=== PATIENT | female | born 1975 | race Caucasian/White ===

== ENCOUNTER 2022-02-28 20:48 | Emergency (ER) | payer MEDICAID ==
[2022-02-28 20:56] VITALS: BP 132/79; PULSE 67; RESP 18; TEMP 99.1
--- NOTE | 2022-02-28 21:19 | XR ---
EXAMINATION TYPE: XR finger RT DATE OF EXAM: 02/28/2022 9:09 PM INDICATION: Patient age:Female; 46 years old; Reason for study: Pain. COMPARISON: None TECHNIQUE: 3 views of the right thumb were obtained. FINDINGS: Normal alignment of the visualized joints. No acute osseous pathology is identified. No e vidence of soft tissue swelling. IMPRESSION: No acute osseous pathology.
--- NOTE | 2022-02-28 21:21 | XR ---
EXAMINATION TYPE: XR ankle complete LT DATE OF EXAM: 02/28/2022 9:08 PM INDICATION: Patient age:Female; 46 years old; Reason for study: Pain; PHH. COMPARISON: None TECHNIQUE: The left ankle is imaged in AP lateral and oblique projections. FINDINGS: There is no evidence of acute osseous pathology. The joint spaces are well-preserved without evidenc e of subluxation or dislocation. Kager's fat pad is intact. Mild soft tissue swelling around the ankl e. No radiopaque foreign bodies are identified. Sensory ossicle is present. IMPRESSION: 1. No evidence of acute fracture. 2. Subcutaneous swelling around the ankle likely secondary to underlying soft tissue injury.
[2022-03-01] MEDS ORDERED: IBUPROFEN 600 MG TAB PO STA (00:30)
--- NOTE | 2022-03-01 00:43 | ED ---
General Adult HPI - General Chief complaint: Extremity Injury, Lower Stated complaint: L ankle pain Time Seen by Provider: 02/28/22 22:59 Source: patient, RN notes reviewed Mode of arrival: ambulatory Limitations: no limitations - History of Present Illness Initial comments: 46-year-old female presents to the emergency department for evaluation of left ankle pain and right thumb discomfort. Patient states she tripped on uneven ground causing her to twist her ankle and fall on outstretched arms. Reports injuries occurred this afternoon. States she had quite a bit of pain with ambulation and also has mild discomfort in the right thumb with palpation and movement. Did not take anything to treat symptoms prior to arrival. No additional injuries. Denies head, neck, or back pain; no head injury or loss of consciousness. - Related Data Previous Rx's Medication Instructions Recorded Ibuprofen [Motrin] 600 mg PO Q8HR PRN #20 tab 03/01/22 Allergies Allergy/AdvReac Type Severity Reaction Status Date / Time shellfish derived [Shellfish] Allergy Anaphylaxis Verified 02/28/22 20:56 Review of Systems ROS Statement: Those systems with pertinent positive or pertinent negative responses have been documented in the HPI. ROS Other: All systems not noted in ROS Statement are negative. Past Medical History Past Medical History: No Reported History History of Any Multi-Drug Resistant Organisms: None Reported Past Surgical History: No Surgical Hx Reported Past Psychological History: No Psychological Hx Reported Smoking Status: Never smoker Past Alcohol Use History: None Reported Past Drug Use History: None Reported General Exam Limitations: physical limitation (Mobility and weightbearing activity limited by left ankle pain.) General appearance: alert, in no apparent distress, other (Well-developed, well- nourished female in no acute distress. Initial temperature 99.1, pulse 67, respirations 18, blood pressure 132/79, pulse ox 99% on room air.) Head exam: Present: atraumatic, normocephalic, normal inspection Respiratory exam: Present: normal lung sounds bilaterally. Absent: respiratory distress, wheezes, rales, rhonchi, stridor Cardiovascular Exam: Present: regular rate, normal rhythm, normal heart sounds. Absent: systolic murmur, diastolic murmur, rubs, gallop, clicks GI/Abdominal exam: Present: soft, normal bowel sounds. Absent: distended, tenderness, guarding, rebound, rigid Course Vital Signs 02/28/22 20:54 Temperature 99.1 F Pulse Rate 67 Respiratory 18 Rate Blood Pressure 132/79 O2 Sat by Pulse 99 Oximetry Procedures - Orthopedic Splinting/Casting Injury #1 Side: left Lower Extremity Injury Location: ankle Lower Extremity Immobilizer: AirCast, Junior wrap Additional Comments: Patient tolerated well. Educated on proper splint care. No neurovascular compromise; distal sensation intact after splinting. Medical Decision Making - Medical Decision Making 46-year-old female presents to the emergency department for evaluation of injury sustained in a fall this afternoon. Upon exam, patient is resting comfortably in a wheelchair with her left lower extremity elevated. She complains of left ankle pain with moderate amount of swelling around the lateral malleolus. Distal sensation is intact. Skin warm, pink, and dry. Patient also complains of pain to the right thumb. There is no abrasion, laceration, or deformity noted. Range of motion is mildly decreased due to pain. There is no snuffbox tenderness or wrist injury. X-rays of the left ankle and right thumb were obtained and were negative. Junior wrap and stirrup splint were applied to the left ankle. Patient is given today and tomorrow off of work. Motrin prescribed for discomfort. She is instructed to follow up with her PCP for a recheck on Thursday. Return parameters discussed in detail. Patient verbalizes understanding and agrees with this plan. Attending: Ericka. - Radiology Data Radiology results: report reviewed, image reviewed X-ray of the left ankle was obtained. Report was reviewed in its entirety. Impression per Dr. Iniguez is #1. No evidence of acute fracture. #2. Subcutaneous swelling around the ankle likely secondary to underlying soft tissue injury. X-ray of the right thumb was obtained. Report was reviewed in its entirety. Impression per Dr. Iniguez is no acute osseous pathology. Disposition Clinical Impression: Left ankle sprain, Thumb pain Disposition: HOME SELF-CARE Condition: Stable Instructions (If sedation given, give patient instructions): Ankle Sprain (ED) Additional Instructions: Junior wrap in place for compression. Stirrup splint for ankle support. Apply ice for no more than 20 minutes per hour. Rest with ankle elevated. May take Motrin if needed for pain. Work note was provided for today and tomorrow. Follow-up with your PCP for a recheck on Thursday. Return to the emergency department with any new, worsening, or concerning symptoms. Prescriptions: Ibuprofen [Motrin] 600 mg PO Q8HR PRN #20 tab PRN Reason: Pain Is patient prescribed a controlled substance at d/c from ED?: No Referrals: None,Stated [Primary Care Provider] - 1-2 days Time of Disposition: 00:43
== END 2022-03-01 00:49 | disposition home or self-care (01) ==
LOC: EC 20:48
DX: Z91.013 Allergy to seafood (principal); S93.402A Sprain of unspecified ligament of left ankle, initial encounter; M79.645 Pain in left finger(s)
CPT/HCPCS: 73140; 73610; 29515; 99283; L4350

== ENCOUNTER → 2022-05-26 | Outpatient (CLI) | payer MEDICAID ==
--- NOTE | 2022-05-27 08:36 | MM ---
Reason for Exam: Screening (asymptomatic). Baseline mammogram. Patient History: Menarche at age 13. First Full-Term at age 31. Late child-bearing (after 30). Patient has history of breast feeding. Used Progesterone. Risk Values: Mary 5 year model risk: 1.1%. NCI Lifetime model risk: 11.6%. Prior Study Comparison: Patient's first Mammogram. Tissue Density: The breast tissue is almost entirely fat. Findings: Analyzed By CAD. There is no suspicious group of microcalcifications or new suspicious mass in either breast. Overall Assessment: Negative, BI-RAD 1 Management: Screening Mammogram of both breasts in 1 year. A clinical breast exam by your physician is recommended on an annual basis and results should be correlated with mammographic findings. Electronically signed and approved by: Kemar Iniguez DO
== END | disposition home or self-care (01) ==
LOC: RADMAMWWP 10:54
PROVIDERS: ATTEND Family Medicine
DX: Z12.31 Encounter for screening mammogram for malignant neoplasm of breast (principal)
CPT/HCPCS: 77067

== ENCOUNTER 2022-06-05 08:56 | Day surgery (SDC) | payer MEDICAID ==
[2022-06-04 08:51] VITALS: BMI 32.5
[~2022-06-05 08:56] MED LIST: LACTATED RINGERS 1,000 ML IV SCH; LIDOCAINE 1% (10MG/ML) FOR IV START INTRADERMA PRN; ONDANSETRON 4 MG/2 ML VIAL IVP PRN
[2022-06-05 09:32] VITALS: RESP 16; TEMP 97.1
[2022-06-05] MEDS ORDERED: PROPOFOL 10 MG/ML 20 ML VIAL IV ONE (10:09)
[2022-06-05] MEDS ORDERED: LIDOCAINE 2% INJ 20 MG/ML (2 ML VIAL) ONE (10:09)
--- NOTE | 2022-06-05 10:10 | P.GSHP ---
History of Present Illness H&P Date: 06/05/22 Chief Complaint: Screening colonoscopy Is a 46-year-old female presents today for screening colonoscopy. Patient denies a significant GI complaints. Past Medical History Past Medical History: No Reported History History of Any Multi-Drug Resistant Organisms: None Reported Past Surgical History: No Surgical Hx Reported Past Anesthesia/Blood Transfusion Reactions: No Reported Reaction Smoking Status: Never smoker - Past Family History Mother Family Medical History: No Reported History Medications and Allergies Home Medications Medication Instructions Recorded Confirmed Type No Known Home Medications 06/04/22 06/05/22 History Allergies Allergy/AdvReac Type Severity Reaction Status Date / Time shellfish derived [Shellfish] Allergy Anaphylaxis Verified 06/05/22 09:33 Surgical - Exam Vital Signs Temp Pulse Resp BP Pulse Ox 97.1 F L 54 L 16 125/64 100 06/05/22 09:31 06/05/22 09:31 06/05/22 09:31 06/05/22 09:31 06/05/22 09:31 - General well developed, well nourished, no distress - Eyes PERRL - ENT normal pinna - Neck no masses - Respiratory normal expansion - Cardiovascular Rhythm: regular - Abdomen Abdomen: soft, non tender Assessment and Plan Assessment: We'll perform screening colonoscopy
--- NOTE | 2022-06-05 10:26 | P.OP ---
Date of Procedure: 06/05/22 Preoperative Diagnosis: Screening colonoscopy Postoperative Diagnosis: Normal colonoscopy Procedure(s) Performed: Colonoscopy Anesthesia: MAC Surgeon: Varun Navarro Pathology: none sent Condition: stable Disposition: PACU Description of Procedure: Patient's placed on the endoscopy table lateral position. She received IV sedation. Digital rectal exam was performed which revealed no ebonized. The flexible colonoscope was then placed patient anus and passed rotator entire colon. The ileocecal valve was visualized. The cecum, ascending and transverse colon appeared normal. The descending and sigmoid colon appeared normal. The scope was brought back the rectum and this appeared normal. Scope withdrawn for patient.
[2022-06-05 10:54] VITALS: BP 128/63; PULSE 52
== END 2022-06-05 11:21 | disposition home or self-care (01) ==
LOC: ORWHC2ENDO 08:56
PROVIDERS: ATTEND Surgery
DX: Z12.11 Encounter for screening for malignant neoplasm of colon (principal); J45.909 Unspecified asthma, uncomplicated; Z91.013 Allergy to seafood
CPT/HCPCS: 81025; 45378; J2704; J2001

== ENCOUNTER 2022-08-05 10:35 | Emergency (ER) | payer MEDICAID ==
[2022-08-05 10:40] VITALS: BP 132/72; PULSE 75; RESP 18; TEMP 98.4
--- NOTE | 2022-08-05 11:11 | ED ---
General Adult HPI - General Chief complaint: Chest Pain Stated complaint: palpitations Time Seen by Provider: 08/05/22 10:48 Source: patient, RN notes reviewed, old records reviewed Mode of arrival: ambulatory Limitations: no limitations - History of Present Illness Initial comments: 46-year-old female presents for evaluation palpitations. Symptoms began prior to arrival and has since resolved. This was associated with some chest tightness. No chest pain. No diaphoresis. No vomiting or diarrhea. No fever. Symptoms resolved at the time my evaluation. Patient felt as though her heart was racing. She states she is being worked up for thyroid issues by her primary care physician. - Related Data Home Medications Medication Instructions Recorded Confirmed No Known Home Medications 06/04/22 06/05/22 Allergies Allergy/AdvReac Type Severity Reaction Status Date / Time shellfish derived [Shellfish] Allergy Anaphylaxis Verified 08/05/22 10:40 Review of Systems ROS Statement: Those systems with pertinent positive or pertinent negative responses have been documented in the HPI. ROS Other: All systems not noted in ROS Statement are negative. Past Medical History Past Medical History: No Reported History History of Any Multi-Drug Resistant Organisms: None Reported Past Surgical History: No Surgical Hx Reported Past Psychological History: No Psychological Hx Reported Smoking Status: Never smoker Past Alcohol Use History: None Reported Past Drug Use History: None Reported General Exam Limitations: no limitations General appearance: alert, in no apparent distress Head exam: Present: atraumatic, normocephalic Eye exam: Present: normal appearance, PERRL ENT exam: Present: normal exam Neck exam: Present: normal inspection. Absent: tenderness, meningismus Respiratory exam: Present: normal lung sounds bilaterally. Absent: respiratory distress, wheezes Cardiovascular Exam: Present: regular rate, normal rhythm GI/Abdominal exam: Present: soft. Absent: distended, tenderness, guarding, rebound Extremities exam: Present: normal inspection, normal capillary refill. Absent: pedal edema, calf tenderness Neurological exam: Present: alert, oriented X3, CN II-XII intact. Absent: motor sensory deficit Psychiatric exam: Present: normal affect, normal mood Skin exam: Present: warm, dry, intact. Absent: cyanosis, diaphoretic Course Vital Signs 08/05/22 10:37 Temperature 98.4 F Pulse Rate 75 Respiratory 18 Rate Blood Pressure 132/72 O2 Sat by Pulse 98 Oximetry EKG Findings - EKG Comments: EKG Findings:: EKG: Sinus rhythm rate of 70, MN interval 152, QRS duration [address] segment elevation, Q waves and T-wave inversion in lead 3. Medical Decision Making - Medical Decision Making 46-year-old female presented for evaluation of palpitation. Patient found to be in sinus rhythm. Patient is not currently having symptoms at the time my evaluation. She does have normal CBC, normal CMP, mild hypomagnesemia 1.5, negative troponin. Chest x-ray clear. Patient reevaluated, resting comfortably. She is instructed that she should follow with her primary care physician, may require heart monitor. Return with worsening or changing symptoms. - Lab Data Result diagrams: 08/05/22 11:08/05/22 11: Lab Results 08/05/22 08/05/22 08/05/22 Range/Units 11: 11: 11: WBC 7.8 (3.8-10.6) k/uL RBC 4.45 (3.80-5.40) m/uL Hgb 13.3 (11.4-16.0) gm/dL Hct 38.6 (34.0-46.0) % MCV 86.7 (80.0-100.0) fL MCH 29.9 (25.0-35.0) pg MCHC 34.5 (31.0-37.0) g/dL RDW 12.2 (11.5-15.5) % Plt Count 249 (150-450) k/uL MPV 9.3 Neutrophils % 58 % Lymphocytes % 28 % Monocytes % 9 % Eosinophils % 3 % Basophils % 0 % Neutrophils # 4.5 (1.3-7.7) k/uL Lymphocytes # 2.2 (1.0-4.8) k/uL Monocytes # 0.7 (0-1.0) k/uL Eosinophils # 0.2 (0-0.7) k/uL Basophils # 0.0 (0-0.2) k/uL PT 10.1 (9.0-12.0) sec INR 0.9 (<1.2) APTT 22.0 (22.0-30.0) sec Sodium 138 (137-145) mmol/L Potassium 3.9 (3.5-5.1) mmol/L Chloride 107 (98-107) mmol/L Carbon Dioxide 21 L (22-30) mmol/L Anion Gap 10 mmol/L BUN 12 (7-17) mg/dL Creatinine 0.46 L (0.52-1.04) mg/dL Est GFR (CKD-EPI)AfAm >90 (>60 ml/min/1.73 sqM) Est GFR (CKD-EPI)NonAf >90 (>60 ml/min/1.73 sqM) Glucose 96 (74-99) mg/dL Calcium 9.0 (8.4-10.2) mg/dL Magnesium 1.5 L (1.6-2.3) mg/dL Total Bilirubin 0.6 (0.2-1.3) mg/dL AST 22 (14-36) U/L ALT 32 (4-34) U/L Alkaline Phosphatase 47 (38-126) U/L Troponin I (0.000-0.034) ng/mL Total Protein 6.5 (6.3-8.2) g/dL Albumin 4.0 (3.5-5.0) g/dL Lipase 116 (23-300) U/L 08/05/22 Range/Units 11:01 WBC (3.8-10.6) k/uL RBC (3.80-5.40) m/uL Hgb (11.4-16.0) gm/dL Hct (34.0-46.0) % MCV (80.0-100.0) fL MCH (25.0-35.0) pg MCHC (31.0-37.0) g/dL RDW (11.5-15.5) % Plt Count (150-450) k/uL MPV Neutrophils % % Lymphocytes % % Monocytes % % Eosinophils % % Basophils % % Neutrophils # (1.3-7.7) k/uL Lymphocytes # (1.0-4.8) k/uL Monocytes # (0-1.0) k/uL Eosinophils # (0-0.7) k/uL Basophils # (0-0.2) k/uL PT (9.0-12.0) sec INR (<1.2) APTT (22.0-30.0) sec Sodium (137-145) mmol/L Potassium (3.5-5.1) mmol/L Chloride (98-107) mmol/L Carbon Dioxide (22-30) mmol/L Anion Gap mmol/L BUN (7-17) mg/dL Creatinine (0.52-1.04) mg/dL Est GFR (CKD-EPI)AfAm (>60 ml/min/1.73 sqM) Est GFR (CKD-EPI)NonAf (>60 ml/min/1.73 sqM) Glucose (74-99) mg/dL Calcium (8.4-10.2) mg/dL Magnesium (1.6-2.3) mg/dL Total Bilirubin (0.2-1.3) mg/dL AST (14-36) U/L ALT (4-34) U/L Alkaline Phosphatase (38-126) U/L Troponin I <0.012 (0.000-0.034) ng/mL Total Protein (6.3-8.2) g/dL Albumin (3.5-5.0) g/dL Lipase (23-300) U/L Disposition Clinical Impression: Palpitations Disposition: HOME SELF-CARE Condition: Good Instructions (If sedation given, give patient instructions): Heart Palpitations (ED) Is patient prescribed a controlled substance at d/c from ED?: No Referrals: Yasmani Abraham MD [Primary Care Provider] - 1-2 days Time of Disposition: 12:22
[2022-08-05 11:23] LABS: Basophils % (A) 0 %; Eosinophils # (A) 0.2 k/uL (0-0.7); Eosinophils % (A) 3 %; HCT 38.6 % (34.0-46.0); HGB 13.3 gm/dL (11.4-16.0); Lymphocytes # (A) 2.2 k/uL (1.0-4.8); Lymphocytes % (A) 28 %; MCH 29.9 pg (25.0-35.0); MCHC 34.5 g/dL (31.0-37.0); MCV 86.7 fL (80.0-100.0); Mean Platelet Volume 9.3; Monocytes # (A) 0.7 k/uL (0-1.0); Monocytes % (A) 9 %; Neutrophils # (A) 4.5 k/uL (1.3-7.7); Neutrophils % (A) 58 %; Platelet Count 249 k/uL (150-450); RBC 4.45 m/uL (3.80-5.40); RDW 12.2 % (11.5-15.5); WBC 7.8 k/uL (3.8-10.6)
[2022-08-05 11:34] LABS: ALT 32 U/L (4-34); AST 22 U/L (14-36); African American GFR (CKD) >90 (>60 ml/min/1.73 sqM); Alkaline Phosphatase 47 U/L (38-126); Anion Gap 10 mmol/L; Blood Urea Nitrogen 12 mg/dL (7-17); Carbon Dioxide 21 mmol/L (22-30); Chloride 107 mmol/L (98-107); Glucose 96 mg/dL (74-99); Lipase 116 U/L (23-300); Magnesium 1.5 mg/dL (1.6-2.3); Non-African American GFR(CKD) >90 (>60 ml/min/1.73 sqM); Potassium 3.9 mmol/L (3.5-5.1); Sodium 138 mmol/L (137-145); Total Bilirubin 0.6 mg/dL (0.2-1.3); Total Protein 6.5 g/dL (6.3-8.2)
--- NOTE | 2022-08-05 11:35 | XR ---
EXAMINATION TYPE: XR chest 2V DATE OF EXAM: 08/05/2022 COMPARISON: NONE HISTORY: Chest pain TECHNIQUE: Frontal and lateral views of the chest are obtained. FINDINGS: There is no focal air space opacity, pleural effusion, or pneumothorax seen. The cardiac silhouette size is within normal limits. Right hemidiaphragm mildly elevated. There are overlying balaji ds. The osseous structures are intact. IMPRESSION: No acute cardiopulmonary process.
[2022-08-05 11:46] LABS: INR 0.9 (<1.2); Prothrombin Time 10.1 sec (9.0-12.0)
== END 2022-08-05 12:47 | disposition home or self-care (01) ==
LOC: EC 10:35
DX: R00.2 Palpitations (principal); Z91.013 Allergy to seafood
CPT/HCPCS: 36415; 71046; 80053; 83690; 83735; 84484; 85025; 85610; 85730; 93005; 99285

== ENCOUNTER → 2022-08-22 | Outpatient (CLI) | payer OTHER ==
--- NOTE | 2022-08-22 12:30 | XR ---
EXAMINATION TYPE: XR forearm LT, XR wrist complete LT DATE OF EXAM: 08/22/2022 12:23 PM INDICATION: Patient age:Female; 46 years old; Reason for study: S46.912A, S63.502A, M79.632; pain. COMPARISON: None TECHNIQUE: The left forearm was examined in frontal and lateral views. The left wrist was examined in frontal lateral oblique and navicular views. FINDINGS: No acute osseous pathology, soft tissue swelling or joint dislocations are seen. IMPRESSION: No evidence of acute fracture.
--- NOTE | 2022-08-22 13:14 | XR ---
EXAMINATION TYPE: XR shoulder complete LT DATE OF EXAM: 08/22/2022 CLINICAL HISTORY: pain COMPARISON: NONE TECHNIQUE: Three views of the left shoulder are obtained. FINDINGS: There is no acute fracture/dislocation evident. The acromioclavicular and glenohumeral ross int spaces appear within normal limits. The visualized ribs are intact and unremarkable. IMPRESSION: 1. There is no acute fracture or dislocation. ICD 10 NO FRACTURE, INITIAL EVALUATION
== END | disposition home or self-care (01) ==
LOC: RADXRMAIN 12:08
PROVIDERS: ATTEND Emergency Medicine
DX: M79.632 Pain in left forearm (principal)

== ENCOUNTER → 2022-09-01 | Outpatient (CLI) | payer MEDICAID ==
--- NOTE | 2022-09-09 10:21 | HM ---
CARDIAC ELECTROPHYSIOLOGY REPORT STUDY PERFORMED: FINDINGS: The patient was monitored for 24 hours. The baseline rhythm appeared to be sinus mechanism with a minimum heart rate of 50, max 133, and average of 76 beats per minute. Ventricular ectopic events presented in less than 1% of the total beats count and presented mainly as PVCs. Supraventricular ectopic events presented in less than 1% of total beats count. The patient did have multiple episodes of narrow complex tachycardia consistent with SVT. CONCLUSION: 1. Sinus rhythm as a baseline mechanism. 2. The patient did have multiple episodes of premature ventricular contraction. 3. The patient did have multiple short episodes of atrial tachycardia/SVT. 4. No diary was attached to the study. MMODL / IJN: [id number] / TERESO
== END | disposition home or self-care (01) ==
LOC: RADECHMAIN 08:10
PROVIDERS: ATTEND Family Medicine
DX: I49.3 Ventricular premature depolarization (principal)
CPT/HCPCS: 93225; 93226

== ENCOUNTER → 2022-09-22 | Outpatient (CLI) | payer MEDICAID, OTHER ==
--- NOTE | 2022-09-22 15:08 | XR ---
EXAMINATION TYPE: XR chest 2V DATE OF EXAM: 09/22/2022 COMPARISON: Chest x-ray August 05, 2022 HISTORY: Presurgical study. TECHNIQUE: Frontal and lateral views of the chest are obtained. FINDINGS: There is no suspicious focal air space opacity, pleural effusion, or pneumothorax seen. T he cardiac silhouette size is stable and within normal limits. The osseous structures are intact. IMPRESSION: No acute process. No significant change from prior.
== END | disposition home or self-care (01) ==
LOC: RADXRMAIN 14:44
PROVIDERS: ATTEND Family Medicine
DX: Z01.818 Encounter for other preprocedural examination (principal)
CPT/HCPCS: 71046

== ENCOUNTER → 2022-10-10 | Outpatient (CLI) | payer MEDICAID | END | disposition home or self-care (01) | LOC: LABPAT 13:38 | PROVIDERS: ATTEND Obstetrics & Gynecology | DX: Z01.812 Encounter for preprocedural laboratory examination (principal); N81.4 Uterovaginal prolapse, unspecified ==

== ENCOUNTER → 2022-10-10 | Outpatient (CLI) | payer MEDICAID | END | disposition home or self-care (01) | LOC: LABWHC1 13:39 | PROVIDERS: ATTEND Internal Medicine Endocrinology, Diabetes & Metabolism | DX: E05.00 Thyrotoxicosis with diffuse goiter without thyrotoxic crisis or storm (principal) | CPT/HCPCS: 36415; 84439; 84443; 84445; 84480 ==

== ENCOUNTER → 2022-10-27 | Outpatient (CLI) | payer MEDICAID | END | disposition home or self-care (01) | LOC: LABWHC1 16:10 | PROVIDERS: ATTEND Internal Medicine Endocrinology, Diabetes & Metabolism | DX: E05.00 Thyrotoxicosis with diffuse goiter without thyrotoxic crisis or storm (principal) | CPT/HCPCS: 36415; 84439; 84443; 84480 ==

== ENCOUNTER → 2022-11-24 | Outpatient (CLI) | payer MEDICAID | END | disposition home or self-care (01) | LOC: LABWHC1 16:01 | PROVIDERS: ATTEND Internal Medicine Endocrinology, Diabetes & Metabolism | DX: E05.00 Thyrotoxicosis with diffuse goiter without thyrotoxic crisis or storm (principal) | CPT/HCPCS: 36415; 84439; 84443; 84480 ==

== ENCOUNTER → 2023-04-02 | Outpatient (CLI) | payer OTHER ==
[2023-04-03 03:00] LABS: T4, Free (Free Thyroxine) 1.85 ng/dL (0.80-1.80)
== END | disposition home or self-care (01) ==
LOC: LABWHC1 14:30
PROVIDERS: ATTEND Internal Medicine Endocrinology, Diabetes & Metabolism
DX: E05.00 Thyrotoxicosis with diffuse goiter without thyrotoxic crisis or storm (principal)
CPT/HCPCS: 36415; 84439; 84443; 84480

== ENCOUNTER → 2024-01-11 | Outpatient (CLI) | payer OTHER ==
[2024-01-12 03:35] LABS: T4, Free (Free Thyroxine) 1.79 ng/dL (0.80-1.80)
== END | disposition home or self-care (01) ==
LOC: LABWHC1 15:57
PROVIDERS: ATTEND Internal Medicine Endocrinology, Diabetes & Metabolism
DX: E05.00 Thyrotoxicosis with diffuse goiter without thyrotoxic crisis or storm (principal)
CPT/HCPCS: 36415; 84439; 84443; 84480

== ENCOUNTER → 2024-02-01 | Outpatient (CLI) | payer OTHER ==
--- NOTE | 2024-02-02 09:39 | MM ---
Reason for Exam: Screening (asymptomatic). Last mammogram was performed 1 year(s) and 8 month(s) ago. Patient History: Menarche at age 13. First Full-Term at age 31. Late child-bearing (after 30). Hysterectomy at age 47. Patient has history of breast feeding. Used Progesterone. Last menstrual period: Risk Values: Mary 5 year model risk: 1.2%. NCI Lifetime model risk: 11.3%. Prior Study Comparison: 05/26/2022 Bilateral MG screening mammo w CAD, [facility]. Tissue Density: There are scattered areas of fibroglandular density. Findings: Analyzed By CAD. There is no suspicious group of microcalcifications or new suspicious mass in either breast. Overall Assessment: Benign, BI-RAD 2 Management: Screening Mammogram of both breasts in 1 year. . Patient should continue monthly self-breast exams. A clinical breast exam by your physician is recommended on an annual basis. This exam should not preclude additional follow-up of suspicious palpable abnormalities. Note on Mary scores and lifetime risk: 1. A Mary score greater than 3% is considered moderate risk. If this is the case, consider specialist referral to assess eligibility for a risk reducing agent. 2. If overall lifetime risk for the development of breast cancer is 20% or higher, the patient may qualify for future screening with alternating mammogram and breast MRI. Electronically signed and approved by: Krisitan Escobedo M.D. Radiologis
--- NOTE | 2024-02-02 11:17 | CA ---
Transthoracic Echo Report Name: Julisa Acosta Age: 48 Gender: F : 1975 Exam Date: 02/01/2024 13:11 Exam Location: [facility] Ht (in): 27.2 Wt (lb): 474 Ordering Physician: Yasmani Abraham MD Attending/Referring Phys: Eve Riojas [facility] [employer] Candida Dejesus RCS Procedure CPT: Indications: R60.0 EDEMA R53.83 OTHER FATIG Cardiac Hx: Technical Quality: Fair Contrast 1: Total Dose (mL): Contrast 2: Total Dose (mL): MEASUREMENTS (Male / Female) Normal Values 2D ECHO LV Diastolic Diameter PLAX 4.4 cm 4.2 - 5.9 / 3.9 - 5.3 cm LV Systolic Diameter PLAX 2.8 cm IVS Diastolic Thickness 1.0 cm 0.6 - 1.0 / 0.6 - 0.9 cm LVPW Diastolic Thickness 0.8 cm 0.6 - 1.0 / 0.6 - 0.9 cm LV Relative Wall Thickness 0.4 LVOT Diameter 2.2 cm LV Diastolic Volume MOD BP 139.4 cm??? 67 - 155 / 56 - 104 cm??? LV Systolic Volume MOD BP 46.5 cm??? 22 - 58 / 19 - 49 cm??? LV Ejection Fraction MOD BP 66.7 % >= 55 % LV Cardiac Index MOD BP 2826.1 cm???/min???m??? LV Diastolic Volume MOD 4C 141.6 cm??? LV Systolic Volume MOD 4C 57.1 cm??? LV Ejection Fraction MOD 4C 59.7 % LV Cardiac Index MOD 4C 2570.3 cm???/min???m??? LV Diastolic Length 4C 9.4 cm LV Systolic Length 4C 7.6 cm LV Diastolic Volume MOD 2C 127.9 cm??? LV Systolic Volume MOD 2C 33.1 cm??? LV Ejection Fraction MOD 2C 74.1 % LV Cardiac Index MOD 2C 2883.9 cm???/min???m??? LV Diastolic Length 2C 8.8 cm LV Systolic Length 2C 6.6 cm Ascending Aorta Diameter 2.9 cm DOPPLER AV Peak Velocity 147.4 cm/s AV Peak Gradient 8.7 mmHg AV Mean Velocity 98.8 cm/s AV Mean Gradient 4.4 mmHg AV Velocity Time Integral 32.8 cm LVOT Peak Velocity 128.3 cm/s LVOT Peak Gradient 6.6 mmHg LVOT Velocity Time Integral 29.5 cm LVOT Stroke Volume 108.5 cm??? LVOT Stroke Volume Index 71.6 ml/m??? LVOT Cardiac Index 3300.3 cm???/min???m??? AV Area Cont Eq vti 3.3 cm??? AV Area Cont Eq pk 3.2 cm??? Mitral E Point Velocity 74.4 cm/s Mitral A Point Velocity 63.1 cm/s Mitral E to A Ratio 1.2 MV Deceleration Time 190.7 ms MV E' Velocity 7.8 cm/s Mitral E to MV E' Ratio 9.5 TR Peak Velocity 10.7 cm/s TR Peak Gradient 0.0 mmHg Right Atrial Pressure 5.0 mmHg Pulmonary Artery Systolic Pressu 5.0 mmHg Right Ventricular Systolic Press 5.0 mmHg PV Peak Velocity 96.5 cm/s PV Peak Gradient 3.7 mmHg FINDINGS Left Ventricle Left ventricular ejection fraction is estimated at 55-60 %. Mildly increased septal wall thickness. Mildly enlarged left ventricle. No obvious regional wall motion abnormalities. Right Ventricle Normal right ventricular size and function. Right ventricular systolic pressure within normal limits. Right Atrium Normal right atrial size. Left Atrium Normal left atrial size. Mitral Valve Structurally normal mitral valve. No evidence for mitral valve prolapse. No mitral stenosis. No mitral regurgitation. Aortic Valve Trileaflet aortic valve. No aortic valve stenosis or regurgitation. Tricuspid Valve Structurally normal tricuspid valve. No tricuspid stenosis. Trace tricuspid regurgitation. Pulmonic Valve Structurally normal pulmonic valve. No pulmonic stenosis. No pulmonic regurgitation. Pericardium No pericardial effusion. Aorta Normal size aortic root and proximal ascending aorta. CONCLUSIONS Normal LV size and systolic function. No significant abnormality on the Doppler exam no pericardial effusion no pulmonary hypertension Previewed by: Dr. Aba Crook MD (Electronically Signed) Final Date: 02 February 2024 11:17
== END | disposition home or self-care (01) ==
LOC: RADMAMWWP 12:27
PROVIDERS: ATTEND Family Medicine
DX: Z12.31 Encounter for screening mammogram for malignant neoplasm of breast (principal); R53.83 Other fatigue; R60.0 Localized edema
CPT/HCPCS: 77063; 77067; 93306

== ENCOUNTER → 2024-03-07 | Outpatient (CLI) | payer OTHER ==
[2024-03-08 03:07] LABS: HCT 46.8 % (37.2-46.3); HGB 14.7 g/dL (12.0-15.0); MCH 28.1 pg (27.0-32.0); MCHC 31.4 g/dL (32.0-37.0); MCV 89.5 FL (80.0-97.0); Mean Platelet Volume 9.3 FL (9.5-12.2); NRBC Per 100 WBC 0 X 10*3/uL (0.00-0.01); Platelet Count 276 X 10*3/uL (140-440); RBC 5.23 X 10*6/uL (4.10-5.20); RDW 14.1 % (11.5-14.5); WBC 10.91 X 10*3/uL (4.50-10.00)
[2024-03-08 03:22] LABS: ALT 23 U/L (8-44); AST 21 U/L (13-35); Albumin 3.6 g/dL (3.8-4.9); Albumin/Globulin Ratio 1.89 Ratio (1.60-3.17); Alkaline Phosphatase 53 U/L (41-126); BUN/Creat Ratio 16.83 Ratio (12.00-20.00); Blood Urea Nitrogen 10.1 mg/dL (9.0-27.0); Calcium 8.5 mg/dL (8.7-10.3); Carbon Dioxide 22.5 mmol/L (21.6-31.8); Chloride 108 mmol/L (96-109); Globulin 1.9 g/dL (1.6-3.3); Glucose 87 mg/dL (70-110); Potassium 4.3 mmol/L (3.5-5.5); Sodium 141 mmol/L (135-145); T4, Free (Free Thyroxine) 0.61 ng/dL (0.80-1.80); Total Bilirubin 0.2 mg/dL (0.3-1.2); Total Protein 5.5 g/dL (6.2-8.2)
== END | disposition home or self-care (01) ==
LOC: LABWHC1 12:39
PROVIDERS: ATTEND Internal Medicine Endocrinology, Diabetes & Metabolism
DX: E05.00 Thyrotoxicosis with diffuse goiter without thyrotoxic crisis or storm (principal)
CPT/HCPCS: 36415; 80053; 84439; 84443; 84480; 85027